=== PATIENT | female | born 1940 | race Caucasian/White ===

== ENCOUNTER 2018-02-05 10:51 | Day surgery (SDC) | payer MEDICARE, BC ==
--- NOTE | 2018-02-01 10:36 | RADIOLOGY REPORT (SQ) ---
EXAM DESCRIPTION: CHEST PA/LATERAL COMPLETED DATE/TIME: 02/01/2018 10:27 am REASON FOR STUDY: PRE-OP COMPARISON: None. EXAM PARAMETERS: NUMBER OF VIEWS: two views TECHNIQUE: Digital Frontal and Lateral radiographic views of the chest acquired. RADIATION DOSE: NA LIMITATIONS: none FINDINGS: LUNGS AND PLEURA: No opacities, masses or pneumothorax. No pleural effusion. MEDIASTINUM AND HILAR STRUCTURES: No masses or contour abnormalities. HEART AND VASCULAR STRUCTURES: Heart normal size. No evidence for failure. BONES: No acute findings. HARDWARE: None in the chest. OTHER: No other significant finding. IMPRESSION: NO SIGNIFICANT RADIOGRAPHIC FINDING IN THE CHEST. TECHNICAL DOCUMENTATION: JOB ID: [id number] [employer]- All Rights Reserved Reading location - IP/workstation name: [email or web address]
[2018-02-01 10:43] LABS: HEMATOCRIT 44.8 % (36.0-47.0); HEMOGLOBIN 15.7 g/dL (12.0-15.5); MEAN CORPUSCULAR VOLUME 92 fl (80-97); PLATELET COUNT 378 10^3/uL (150-450); RED CELL DISTRIBUTION WIDTH 13.7 % (11.5-14.0); WHITE BLOOD COUNT 9.7 10^3/uL (4.0-10.5)
[2018-02-01 10:50] LABS: APPEARANCE,URINE CLOUDY; BILIRUBIN,URINE NEGATIVE (NEGATIVE); GLUCOSE, URINE NEGATIVE (NEGATIVE); KETONES,URINE NEGATIVE (NEGATIVE); LEUKOCYTE ESTERASE,URINE MODERATE (NEGATIVE); NITRITE,URINE NEGATIVE (NEGATIVE); PROTEIN,URINE NEGATIVE (NEGATIVE); URINE SPECIFIC GRAVITY 1.018; UROBILINOGEN,URINE NEGATIVE mg/dL (<2.0)
[2018-02-01 10:52] LABS: COLOR,URINE YELLOW
[2018-02-01 11:16] LABS: ANION GAP 17 (5-19); BLOOD UREA NITROGEN 28 mg/dL (7-20); CALCIUM 10.9 mg/dL (8.4-10.2); CARBON DIOXIDE 24 mmol/L (22-30); CHLORIDE 102 mmol/L (98-107); GLUCOSE 105 mg/dL (75-110); POTASSIUM 4.5 mmol/L (3.6-5.0); SODIUM 142.8 mmol/L (137-145)
--- NOTE | 2018-02-01 11:41 | EKG REPORT ---
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
[~2018-02-05 10:51] MED LIST: CEFAZOLIN 2 GM/D5W RTU 2 GM/50 ML RTUPB IV PRN; LACTATED RINGERS 1000 ML IV PRN; LIDOCAINE 0.5% INJ-PF (5 MG/ML) 50 ML SDV SUBCUT PRN
[2018-02-05] MEDS ORDERED: ONDANSETRON HCL INJ/PF 4 MG/2 ML SDV ONE (12:07)
[2018-02-05] MEDS ORDERED: GLYCOPYRROLATE 1 MG/5 ML SYRINGE ONE (12:07)
[2018-02-05] MEDS ORDERED: LIDOCAINE 2% INJ-PF (20 MG/ML) 2 ML AMPUL ONE (12:07)
[2018-02-05] MEDS ORDERED: SUCCINYLCHOLINE CHLORIDE INJ 200 MG/10 ML VIAL ONE (12:07)
--- NOTE | 2018-02-05 13:28 | EKG REPORT ---
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
[2018-02-05] MEDS ORDERED: FENTANYL CITRATE INJ/PF 100 MCG/2 ML AMPUL ONE ×2 (13:37→13:38)
[2018-02-05] MEDS ORDERED: MIDAZOLAM 2 MG/2 ML INJ ONE (13:38)
[2018-02-05] MEDS ORDERED: PROPOFOL INJ 200 MG/20 ML VIAL IV ONE (13:39)
[2018-02-05] MEDS ORDERED: DIPHENHYDRAMINE HCL 50 MG/ML VIAL IV PRN (15:18)
[2018-02-05] MEDS ORDERED: FENTANYL CITRATE INJ/PF 100 MCG/2 ML AMPUL IV PRN ×3 (15:18)
[2018-02-05] MEDS ORDERED: PROMETHAZINE HCL INJ 25 MG/1 ML VIAL IV PRN (15:18)
--- NOTE | 2018-02-05 15:37 | Operative Report ---
Operative Report DATE OF SURGERY: 02/05/18 PREOPERATIVE DIAGNOSIS: Right lateral malleolus fracture OPERATION: Open reduction internal fixation right lateral malleolus fracture SURGEON: JOEL GILBERT ANESTHESIA: GA ESTIMATED BLOOD LOSS: 50 PROCEDURE: With the patient supine on the operating table the right lower extreme was prepped and draped in sterile fashion. Limb was elevated for exsanguination tourniquet inflated to 250 torr. Longitudinal incisions made over the distal fibula and sharp dissection was carried incision through the periosteum. The periosteum was elevated. The underlying fracture is identified. Its reduced directly. A 6 hole one third tubular stainless steel plate from [employer] was fashioned into a hook plate. Is applied to the lateral surface of fibula with an anatomic reduction. It secured with 3 screws proximally and one screw distally. Its fracture reduction and hardware placement are checked fluoroscopically and felt to be adequate. The tourniquet is deflated. The wound is irrigated. Hemostasis obtained with electrocautery. The wound is closed in layers with interrupted Vicryl followed by nylon. A sterile compressive dressing posterior plaster splint were applied and the patient's return to the PACU in satisfactory condition.
[2018-02-05] MEDS: FENTANYL CITRATE INJ/PF 100 MCG/2 ML AMPUL ONE ×2 (15:40→15:45)
[2018-02-05] MEDS ORDERED: ONDANSETRON 4 MG TAB.RAPDIS PO PRN (16:01)
--- NOTE | 2018-02-05 16:08 | RADIOLOGY REPORT (SQ) ---
EXAM DESCRIPTION: ANKLE RIGHT AP/LATERAL; NO CHG FLUORO COMPLETED DATE/TIME: 02/05/2018 3:35 pm REASON FOR STUDY: ORIF RT ANKLE S82.61XA DISP FX OF LATERAL MALLEOLUS OF RIGHT FIBULA, INIT S92.351 A DISP FX OF FIFTH METATARSAL BONE, RIGHT FOOT, INIT Z79.01 [facility] (CURRENT) USE OF ANTICOAGULAN TS COMPARISON: None. FLUOROSCOPY TIME: No fluoro time is recorded. 2 images saved to PACS. RADIATION DOSE: 0.154 mGy TECHNIQUE: Intra-operative images acquired after surgical procedure to evaluate Procedure. NUMBER OF IMAGES: 2 LIMITATIONS: None. FINDINGS: 2 images obtained from fluoro document placement of the compression plate on the distal fi bula secured by 4 screws. IMPRESSION: ORIF distal fibular fracture. Refer to operative note for further information. COMMENT: Quality ID 145: Final reports for procedures using fluoroscopy that document radiation exp osure indices, or exposure time and number of fluorographic images (if radiation exposure indices are not available) Please consult full operative report of the attending physician for description of the procedure. TECHNICAL DOCUMENTATION: JOB ID: [id number] [email or web address]- All Rights Reserved Reading location - IP/workstation name: [email or web address]
--- NOTE | 2018-02-05 16:08 | RADIOLOGY REPORT (SQ) ---
EXAM DESCRIPTION: ANKLE RIGHT AP/LATERAL; NO CHG FLUORO COMPLETED DATE/TIME: 02/05/2018 3:35 pm REASON FOR STUDY: ORIF RT ANKLE S82.61XA DISP FX OF LATERAL MALLEOLUS OF RIGHT FIBULA, INIT S92.351 A DISP FX OF FIFTH METATARSAL BONE, RIGHT FOOT, INIT Z79.01 [facility] (CURRENT) USE OF ANTICOAGULAN TS COMPARISON: None. FLUOROSCOPY TIME: No fluoro time is recorded. 2 images saved to PACS. RADIATION DOSE: 0.154 mGy TECHNIQUE: Intra-operative images acquired after surgical procedure to evaluate Procedure. NUMBER OF IMAGES: 2 LIMITATIONS: None. FINDINGS: 2 images obtained from fluoro document placement of the compression plate on the distal fi bula secured by 4 screws. IMPRESSION: ORIF distal fibular fracture. Refer to operative note for further information. COMMENT: Quality ID [id number]: Final reports for procedures using fluoroscopy that document radiation exp osure indices, or exposure time and number of fluorographic images (if radiation exposure indices are not available) Please consult full operative report of the attending physician for description of the procedure. TECHNICAL DOCUMENTATION: JOB ID: [id number] [employer]- All Rights Reserved Reading location - IP/workstation name: [email or web address]
[2018-02-05] MEDS ORDERED: HYDROMORPHONE HCL INJ/PF 2 MG/ML AMPULE IV ONE (17:00)
[2018-02-05] MEDS: OXYCODONE HCL IR 5 MG TABLET PO PRN (19:36)
[2018-02-05] MEDS: CEFAZOLIN SODIUM 2 GM in NORMAL SALINE 100 ML IV SCH (21:36)
[2018-02-06] MEDS: CEFAZOLIN SODIUM 2 GM in NORMAL SALINE 100 ML IV SCH ×2 (05:43→14:24)
[2018-02-06] MEDS: OXYCODONE HCL IR 5 MG TABLET PO PRN ×2 (05:43→14:24)
--- NOTE | 2018-02-06 06:45 | PDOC DISCHARGE SUMMARY ---
General - Admit/Disc Date/PCP Admission Date/Primary Care Provider: RASHEED AKERS MD Discharge Date: 02/06/18 - Discharge Diagnosis (1) Fracture of right ankle, lateral malleolus Is this a current diagnosis for this admission?: Yes - Additional Information Home Medications: Clopidogrel Bisulfate [Plavix 75 mg Tablet] 1 tab PO DAILY 02/01/18 Ergocalciferol (Vitamin D2) [Vitamin D2] 1 tab PO DAILY 02/01/18 Hydrochlorothiazide 1 tab PO DAILY 02/01/18 Magnesium Oxide 1 tab PO DAILY 02/01/18 Metoprolol Succinate [Toprol Xl] 1 tab PO DAILY 02/01/18 Multivitamin [Multiple Vitamins] 1 tab PO DAILY 02/01/18 Sertraline HCl 1 tab PO HSP PRN 02/01/18 Simvastatin [Zocor 20 mg Tablet] 1 tab PO HSP PRN 02/01/18 Vitamin B Complex [Super B Complex] 1 tab PO DAILY 02/01/18 History of Present Illness History of Present Illness: BLANE SWANSON is a 78 year old female who fell and sustained a right ankle injury. Radiographically she was identified to have a displaced right lateral malleolus fracture. Patient is taken to the operating room today on an outpatient basis for an open reduction internal fixation of the fracture. Hospital Course Hospital Course: Patient is taken to the operating room on an outpatient basis and undergoes an open reduction internal fixation of right lateral malleolus fracture without complication. Postoperatively she is kept in the hospital overnight to arrange for home health services and physical therapy. Physical Exam Vital Signs: Temp Pulse Resp BP Pulse Ox 36.4 C 57 L 17 123/74 95 02/05/18 22:00 02/05/18 22:00 02/05/18 22:00 02/05/18 22:00 02/05/18 22:00 Intake & Output 02/04/18 02/05/18 02/06/18 06:59 06:59 06:59 Intake Total 2049 Output Total 50 Balance 1999 Weight 90.26 kg General appearance: PRESENT: no acute distress Head exam: PRESENT: normocephalic Respiratory exam: PRESENT: unlabored Cardiovascular exam: PRESENT: RRR Vascular exam: PRESENT: normal capillary refill GI/Abdominal exam: PRESENT: soft Rectal exam: PRESENT: deferred Extremities exam: PRESENT: other - Right lower extremity splint is clean dry and intact. Brisk capillary refill to the toes. Sensory examination is intact to light touch to the toes. Motor function to great toe flexion extension is intact. Neurological exam: PRESENT: alert, awake, oriented to person, oriented to place , oriented to time, oriented to situation Psychiatric exam: PRESENT: appropriate affect, normal mood. ABSENT: homicidal ideation, suicidal ideation Skin exam: PRESENT: dry, intact, warm. ABSENT: cyanosis, rash Results Laboratory Results: 02/01/18 09:49 02/05/18 11:09 02/05/18 11:09 Potassium 3.6 Impressions: Chest X-Ray 02/01/18 10:10 IMPRESSION: NO SIGNIFICANT RADIOGRAPHIC FINDING IN THE CHEST. Ankle X-Ray 02/05/18 00:00 IMPRESSION: ORIF distal fibular fracture. Refer to operative note for further information. Fluoroscopy 02/05/18 00:00 IMPRESSION: ORIF distal fibular fracture. Refer to operative note for further information. Status: Imported from PACS Qualifiers - * PATIENT BEING DISCHARGED WITH ANY OF THE FOLLOWING DIAGNOSIS: No VTE patient discharged on overlapping Therapy?: No Reason(s) for not prescribing Overlap Therapy:: Not indicated Plan Discharge Plan: Social work consulted for home health nursing, wheeled walker, bedside commode. Physical therapy consulted for touchdown weightbearing restriction on the right lower extremity. Anticipate discharge later today. Time Spent: Less than 30 Minutes
[2018-02-06] MEDS ORDERED: CALCIUM CARBONATE 500 MG TAB.CHEW PO PRN (07:24)
[2018-02-06 12:50] VITALS: BP 103/52
== END 2018-02-06 16:50 | disposition home health service (06) ==
LOC: OROUT 10:51 → 4S 18:08 → OROUT 02-06 16:50
PROVIDERS: ATTEND Orthopaedic Surgery
DX: S82.61XA Displaced fracture of lateral malleolus of right fibula, initial encounter for closed fracture (principal); W19.XXXA Unspecified fall, initial encounter; E78.00 Pure hypercholesterolemia, unspecified; I10 Essential (primary) hypertension; Z79.01 Long term (current) use of anticoagulants; Z88.5 Allergy status to narcotic agent; Z79.899 Other long term (current) drug therapy; Z86.73 Personal history of transient ischemic attack (TIA), and cerebral infarction without residual deficits; Z79.02 Long term (current) use of antithrombotics/antiplatelets
CPT/HCPCS: 01480; 36415; 71046; 80048; 81001; 84132; 85027; 93005; 93010; C1713; G8978-GP; G8979-GP; J0330; J0690; J1170; J2250; J2405; J2704; J3010; J3490